=== PATIENT | male | born 1955 | race Caucasian/White ===

== ENCOUNTER 2018-02-07 10:10 | Inpatient (IN) | payer OTHER ==
[2018-02-07] MEDS: morphine 4 MG/ML VIAL IV (10:46)
[2018-02-07] MEDS: ONDANSETRON 4 MG INJ IV (10:46)
[2018-02-07 10:50] LABS: ADD MAN DIFF? NO
[2018-02-07 11:00] LABS: WHITE BLOOD COUNT 13.1 10^3/ul (4.8-10.8)
[2018-02-07 11:00] LABS: BASOPHILS % 0.2 % (0.0-2.0); EOSINOPHILS # 0.2 10^3/ul (0.0-0.5); EOSINOPHILS % 1.3 % (0.0-7.0); HEMATOCRIT 36.5 % (42.0-52.0); HEMOGLOBIN 12.7 g/dl (14.0-18.0); LYMPHOCYTES # 1.7 10^3/ul (0.8-2.9); LYMPHOCYTES % 12.9 % (15.0-51.0); MEAN CORPUSCULAR HEMOGLOBIN 28.9 pg (29.0-33.0); MEAN CORPUSCULAR HGB CONC 34.8 g/dl (32.0-37.0); MEAN PLATELET VOLUME 9.1 fl (7.4-10.4); MONOCYTE # 0.9 10^3/ul (0.3-0.9); MONOCYTES % 6.7 % (0.0-11.0); NEUTROPHIL # 10.2 10^3/ul (1.6-7.5); NEUTROPHILS % 78.1 % (39.0-77.0); PLATELET COUNT 259 10^3/UL (140-415)
[2018-02-07 11:22] LABS: ALANINE AMINOTRANSFERASE 20 IU/L (13-69); ALBUMIN/GLOBULIN RATIO 1.08; ALKALINE PHOSPHATASE 88 IU/L (42-121); ANION GAP 14 (8-16); ASPARTATE AMINO TRANSFERASE 15 IU/L (15-46); BILIRUBIN,INDIRECT 0.7 mg/dl (0-1.1); BILIRUBIN,TOTAL 0.7 mg/dl (0.2-1.3); BLOOD UREA NITROGEN 13 mg/dl (7-20); CALCIUM 9.1 mg/dl (8.4-10.2); CARBON DIOXIDE 28 mmol/L (21-31); CHLORIDE 105 mmol/L (97-110); CREATININE 0.79 mg/dl (0.61-1.24); GLUCOSE 155 mg/dl (70-220); POTASSIUM 3.5 mmol/L (3.5-5.1); SODIUM 143 mmol/L (135-144); TOTAL PROTEIN 7.7 g/dl (6.1-8.1)
[2018-02-07] MEDS: SOD CHLORIDE 0.9% 100 ML (12:31)
[2018-02-07] MEDS: IOHEXOL 300MG/ML 150 ML BTL (12:32)
[2018-02-07] MEDS: ERTAPENEM SODIUM 1 GM in SOD CHLORIDE 0.9% 100 ML IVPB (13:56)
[2018-02-07] MEDS ORDERED: MEROPENEM 1 GM/50ML(PMX) 50 ML IVPB ×2 (14:00→22:00)
[2018-02-07] MEDS ORDERED: ACETAMINOPHEN 325 MG TAB PO ×2 (14:00→14:30)
[2018-02-07] MEDS ORDERED: ONDANSETRON 4 MG INJ IV ×3 (14:00→18:00)
[2018-02-07] MEDS: SOD CHLORIDE 0.9% 1,000 ML IV (14:07)
[2018-02-07] MEDS ORDERED: NACL 0.9% 3 ML SYG IV (14:30)
[2018-02-07] MEDS ORDERED: DOCUSATE SODIUM 100 MG CAP PO (14:30)
[2018-02-07] MEDS ORDERED: BISACODYL (EC) 5 MG TAB PO (14:30)
[2018-02-07] MEDS ORDERED: MAGNESIUM HYDROXIDE 30ML CUP PO (14:30)
[2018-02-07] MEDS: DEXTROSE 5%-0.45% NACL 1,000 ML IV ×2 (16:31→23:07)
[2018-02-07] MEDS ORDERED: DIPHENHYDRAMINE 50 MG INJ IV (18:00)
[2018-02-07] MEDS ORDERED: MEPERIDINE 25 MG INJ IV (18:00)
[2018-02-07] MEDS ORDERED: FENTAnyl 50 MCG/ML VIAL IV (18:00)
[2018-02-07] MEDS ORDERED: HYDROmorphONE 1 MG/5 ML IV SYRINGE IV ×2 (18:00)
[2018-02-07] MEDS ORDERED: FENTAnyl 50 MCG/ML VIAL (18:38)
[2018-02-07] MEDS ORDERED: LIDOCAINE 1% (MPF) 30 ML INJ (18:38)
[2018-02-07] MEDS ORDERED: SUCCINYLCHOLINE CHLORIDE 100 MG/5 ML SYG IV (19:28)
[2018-02-07] MEDS ORDERED: ROPIVACAINE 0.5 % 30 ML VIAL (19:28)
[2018-02-07] MEDS ORDERED: LIDOCAINE 100 MG SYRINGE (19:28)
[2018-02-07] MEDS ORDERED: ROCURONIUM 50 MG INJ (19:28)
[2018-02-07] MEDS ORDERED: SUGAMMADEX SODIUM 200 MG/2 ML VIAL IV (19:28)
[2018-02-07] MEDS ORDERED: PROPOFOL 20 ML (19:28)
[2018-02-07] MEDS: BUPIVACAINE 0.25%/EPI (SDV) 30 ML INJ (19:53)
[2018-02-07] MEDS: METOCLOPRAMIDE 10 MG INJ IV (20:28)
[2018-02-07] MEDS: FENTAnyl 50 MCG/ML VIAL IV (20:28)
[2018-02-07] MEDS: morphine 2 MG INJ IV (23:19)
[2018-02-07] MEDS: PIPER-TAZO 3.375 GM IV (PMX) 100 ML IVPB (23:20)
[2018-02-08] MEDS: morphine 2 MG INJ IV ×4 (02:36→23:41)
[2018-02-08] MEDS: DEXTROSE 5%-0.45% NACL 1,000 ML IV ×3 (03:00→21:41)
[2018-02-08] MEDS: PIPER-TAZO 3.375 GM IV (PMX) 100 ML IVPB ×4 (05:13→23:38)
[2018-02-08 05:37] LABS: ADD MAN DIFF? NO
[2018-02-08 05:43] LABS: WHITE BLOOD COUNT 11.7 10^3/ul (4.8-10.8)
[2018-02-08 05:43] LABS: BASOPHILS % 0.1 % (0.0-2.0); EOSINOPHILS # 0.1 10^3/ul (0.0-0.5); EOSINOPHILS % 0.6 % (0.0-7.0); HEMATOCRIT 34.7 % (42.0-52.0); HEMOGLOBIN 11.8 g/dl (14.0-18.0); LYMPHOCYTES # 1.4 10^3/ul (0.8-2.9); LYMPHOCYTES % 11.8 % (15.0-51.0); MEAN CORPUSCULAR HEMOGLOBIN 28.9 pg (29.0-33.0); MONOCYTE # 0.7 10^3/ul (0.3-0.9); MONOCYTES % 6.3 % (0.0-11.0); NEUTROPHIL # 9.4 10^3/ul (1.6-7.5); NEUTROPHILS % 80.3 % (39.0-77.0); PLATELET COUNT 242 10^3/UL (140-415); RED BLOOD COUNT 4.08 10^6/ul (4.70-6.10); RED CELL DISTRIBUTION WIDTH 12.1 % (11.5-14.5)
[2018-02-08 06:11] LABS: ALANINE AMINOTRANSFERASE 22 IU/L (13-69); ALBUMIN 3.4 g/dl (3.3-4.9); ALBUMIN/GLOBULIN RATIO 0.97; ALKALINE PHOSPHATASE 71 IU/L (42-121); ANION GAP 9 (8-16); ASPARTATE AMINO TRANSFERASE 13 IU/L (15-46); BILIRUBIN,INDIRECT 0.6 mg/dl (0-1.1); BILIRUBIN,TOTAL 0.6 mg/dl (0.2-1.3); BLOOD UREA NITROGEN 9 mg/dl (7-20); CALCIUM 8.4 mg/dl (8.4-10.2); CARBON DIOXIDE 31 mmol/L (21-31); CHLORIDE 105 mmol/L (97-110); CREATININE 0.83 mg/dl (0.61-1.24); GLUCOSE 162 mg/dl (70-220); MAGNESIUM 2.2 mg/dl (1.7-2.5); POTASSIUM 4.1 mmol/L (3.5-5.1); SODIUM 141 mmol/L (135-144); TOTAL PROTEIN 6.9 g/dl (6.1-8.1)
[2018-02-08] MEDS ORDERED: hydrALAzine 20 MG INJ IV (17:00)
[2018-02-08] MEDS ORDERED: ENALAPRILAT 1.25 MG INJ IV (17:00)
[2018-02-08] MEDS: LORAZEPAM 2 MG INJ IV (17:22)
[2018-02-09] MEDS: PIPER-TAZO 3.375 GM IV (PMX) 100 ML IVPB ×4 (05:23→23:53)
[2018-02-09 06:05] LABS: ADD MAN DIFF? NO
[2018-02-09 06:24] LABS: BASOPHILS % 0.2 % (0.0-2.0); EOSINOPHILS # 0.2 10^3/ul (0.0-0.5); EOSINOPHILS % 1.2 % (0.0-7.0); HEMATOCRIT 37.2 % (42.0-52.0); LYMPHOCYTES # 1.6 10^3/ul (0.8-2.9); LYMPHOCYTES % 12.8 % (15.0-51.0); MEAN CORPUSCULAR HEMOGLOBIN 29.1 pg (29.0-33.0); MEAN CORPUSCULAR HGB CONC 34.9 g/dl (32.0-37.0); MEAN CORPUSCULAR VOLUME 83.4 fl (82.0-101.0); MONOCYTE # 0.9 10^3/ul (0.3-0.9); MONOCYTES % 7.1 % (0.0-11.0); NEUTROPHIL # 9.5 10^3/ul (1.6-7.5); PLATELET COUNT 265 10^3/UL (140-415); RED BLOOD COUNT 4.46 10^6/ul (4.70-6.10); RED CELL DISTRIBUTION WIDTH 11.9 % (11.5-14.5)
[2018-02-09 06:24] LABS: WHITE BLOOD COUNT 12.2 10^3/ul (4.8-10.8)
[2018-02-09 07:25] LABS: ANION GAP 14 (8-16); BLOOD UREA NITROGEN 6 mg/dl (7-20); CALCIUM 8.5 mg/dl (8.4-10.2); CARBON DIOXIDE 27 mmol/L (21-31); CHLORIDE 103 mmol/L (97-110); CREATININE 0.77 mg/dl (0.61-1.24); GLUCOSE 149 mg/dl (70-220); MAGNESIUM 2.2 mg/dl (1.7-2.5); PHOSPHORUS 2.8 mg/dl (2.5-4.9); POTASSIUM 3.6 mmol/L (3.5-5.1); SODIUM 140 mmol/L (135-144)
[2018-02-09] MEDS: DEXTROSE 5%-0.45% NACL 1,000 ML IV (08:44)
[2018-02-09] MEDS: AMLODIPINE 5 MG TAB PO (09:45)
[2018-02-09] MEDS: morphine 2 MG INJ IV (09:55)
[2018-02-09] MEDS: HYDROCODONE/APAP (5/325) TAB PO ×2 (12:30→18:30)
[2018-02-10] MEDS: PIPER-TAZO 3.375 GM IV (PMX) 100 ML IVPB ×3 (05:34→18:06)
[2018-02-10] MEDS: HYDROCODONE/APAP (5/325) TAB PO ×3 (05:34→18:05)
[2018-02-10 06:14] LABS: ADD MAN DIFF? NO
[2018-02-10 06:26] LABS: WHITE BLOOD COUNT 10.1 10^3/ul (4.8-10.8)
[2018-02-10 06:26] LABS: BASOPHILS % 0.3 % (0.0-2.0); EOSINOPHILS # 0.3 10^3/ul (0.0-0.5); EOSINOPHILS % 2.5 % (0.0-7.0); HEMOGLOBIN 12.9 g/dl (14.0-18.0); LYMPHOCYTES # 1.7 10^3/ul (0.8-2.9); LYMPHOCYTES % 16.5 % (15.0-51.0); MEAN CORPUSCULAR HEMOGLOBIN 28.9 pg (29.0-33.0); MEAN CORPUSCULAR HGB CONC 34.9 g/dl (32.0-37.0); MEAN PLATELET VOLUME 9.3 fl (7.4-10.4); MONOCYTE # 0.6 10^3/ul (0.3-0.9); MONOCYTES % 6.1 % (0.0-11.0); NEUTROPHIL # 7.4 10^3/ul (1.6-7.5); NEUTROPHILS % 73.5 % (39.0-77.0); PLATELET COUNT 254 10^3/UL (140-415); RED BLOOD COUNT 4.46 10^6/ul (4.70-6.10)
[2018-02-10 07:05] LABS: ANION GAP 17 (8-16); BLOOD UREA NITROGEN 8 mg/dl (7-20); CALCIUM 8.7 mg/dl (8.4-10.2); CARBON DIOXIDE 28 mmol/L (21-31); CHLORIDE 101 mmol/L (97-110); GLUCOSE 116 mg/dl (70-220); MAGNESIUM 2.3 mg/dl (1.7-2.5); PHOSPHORUS 3.2 mg/dl (2.5-4.9); POTASSIUM 3.5 mmol/L (3.5-5.1); SODIUM 142 mmol/L (135-144)
[2018-02-10] MEDS: AMLODIPINE 5 MG TAB PO (08:12)
[2018-02-10] MEDS ORDERED: LORAZEPAM 0.5 MG TAB PO (15:01)
[2018-02-10] MEDS ORDERED: morphine LIQ (10 MG/5 ML) CUP PO (15:01)
[2018-02-11] MEDS: PIPER-TAZO 3.375 GM IV (PMX) 100 ML IVPB ×4 (00:31→17:37)
[2018-02-11 06:19] LABS: ADD MAN DIFF? NO
[2018-02-11 06:29] LABS: BASOPHIL # 0.1 10^3/ul (0.0-0.1); BASOPHILS % 0.6 % (0.0-2.0); EOSINOPHILS # 0.3 10^3/ul (0.0-0.5); EOSINOPHILS % 3.2 % (0.0-7.0); HEMATOCRIT 37.9 % (42.0-52.0); HEMOGLOBIN 12.9 g/dl (14.0-18.0); LYMPHOCYTES # 1.6 10^3/ul (0.8-2.9); MEAN CORPUSCULAR HEMOGLOBIN 28.6 pg (29.0-33.0); MEAN PLATELET VOLUME 9.2 fl (7.4-10.4); MONOCYTE # 0.5 10^3/ul (0.3-0.9); MONOCYTES % 6.7 % (0.0-11.0); NEUTROPHIL # 5.2 10^3/ul (1.6-7.5); NEUTROPHILS % 67.1 % (39.0-77.0); PLATELET COUNT 273 10^3/UL (140-415); RED BLOOD COUNT 4.51 10^6/ul (4.70-6.10); RED CELL DISTRIBUTION WIDTH 11.9 % (11.5-14.5)
[2018-02-11 06:29] LABS: WHITE BLOOD COUNT 7.8 10^3/ul (4.8-10.8)
[2018-02-11 06:50] LABS: ANION GAP 14 (8-16); BLOOD UREA NITROGEN 12 mg/dl (7-20); CALCIUM 8.8 mg/dl (8.4-10.2); CARBON DIOXIDE 29 mmol/L (21-31); CHLORIDE 104 mmol/L (97-110); CREATININE 0.92 mg/dl (0.61-1.24); GLUCOSE 124 mg/dl (70-220); MAGNESIUM 2.3 mg/dl (1.7-2.5); PHOSPHORUS 3.3 mg/dl (2.5-4.9); SODIUM 143 mmol/L (135-144)
[2018-02-11] MEDS: AMLODIPINE 5 MG TAB PO (08:30)
[2018-02-11] MEDS: HYDROCODONE/APAP (5/325) TAB PO ×2 (12:19→22:18)
[2018-02-12] MEDS: PIPER-TAZO 3.375 GM IV (PMX) 100 ML IVPB ×3 (00:16→12:23)
[2018-02-12 05:55] LABS: ADD MAN DIFF? NO
[2018-02-12 06:04] LABS: BASOPHILS % 0.3 % (0.0-2.0); EOSINOPHILS # 0.3 10^3/ul (0.0-0.5); EOSINOPHILS % 3.6 % (0.0-7.0); HEMATOCRIT 36.6 % (42.0-52.0); HEMOGLOBIN 12.7 g/dl (14.0-18.0); LYMPHOCYTES # 1.9 10^3/ul (0.8-2.9); LYMPHOCYTES % 25.3 % (15.0-51.0); MEAN CORPUSCULAR HEMOGLOBIN 28.9 pg (29.0-33.0); MEAN CORPUSCULAR HGB CONC 34.7 g/dl (32.0-37.0); MEAN CORPUSCULAR VOLUME 83.2 fl (82.0-101.0); MEAN PLATELET VOLUME 9.1 fl (7.4-10.4); MONOCYTE # 0.5 10^3/ul (0.3-0.9); MONOCYTES % 7.1 % (0.0-11.0); NEUTROPHIL # 4.7 10^3/ul (1.6-7.5); NEUTROPHILS % 62.5 % (39.0-77.0); PLATELET COUNT 247 10^3/UL (140-415); RED CELL DISTRIBUTION WIDTH 12.1 % (11.5-14.5)
[2018-02-12 06:04] LABS: WHITE BLOOD COUNT 7.5 10^3/ul (4.8-10.8)
[2018-02-12 06:38] LABS: ALBUMIN 3.5 g/dl (3.3-4.9); ANION GAP 12 (8-16); BLOOD UREA NITROGEN 11 mg/dl (7-20); CALCIUM 8.8 mg/dl (8.4-10.2); CARBON DIOXIDE 28 mmol/L (21-31); CHLORIDE 107 mmol/L (97-110); CREATININE 0.94 mg/dl (0.61-1.24); GLUCOSE 120 mg/dl (70-220); MAGNESIUM 2.4 mg/dl (1.7-2.5); PHOSPHORUS 3.1 mg/dl (2.5-4.9); POTASSIUM 4.3 mmol/L (3.5-5.1); SODIUM 143 mmol/L (135-144)
[2018-02-12] MEDS: AMLODIPINE 5 MG TAB PO (09:09)
== END 2018-02-12 17:10 | disposition home health service (06) | DRG 853 ==
LOC: E/R 10:10 → SDS 17:55 → REC 13:52 → MS2 21:30
PROC: 0WJG4ZZ Inspection of Peritoneal Cavity, Percutaneous Endoscopic Approach (ICD-10-PCS; principal; 2018-02-07 18:00)
PROC: 0W9G40Z Drainage of Peritoneal Cavity with Drainage Device, Percutaneous Endoscopic Approach (ICD-10-PCS; 2018-02-07 18:00)
DX: A41.9 Sepsis, unspecified organism (principal); K35.3 Acute appendicitis with localized peritonitis; K35.2 Acute appendicitis with generalized peritonitis; E66.9 Obesity, unspecified; Z68.31 Body mass index [BMI] 31.0-31.9, adult; K59.00 Constipation, unspecified; N40.0 Benign prostatic hyperplasia without lower urinary tract symptoms; D50.9 Iron deficiency anemia, unspecified
CPT/HCPCS: 36415; 74177; 80048; 80053; 80069; 83735; 84100; 85025; 93005; 96374; 96375; 99285-25

== ENCOUNTER 2018-06-05 16:39 | Inpatient (IN) | payer OTHER ==
[2018-06-05 17:26] LABS: ADD MAN DIFF? NO
[2018-06-05 17:29] LABS: WHITE BLOOD COUNT 6.8 10^3/ul (4.8-10.8)
[2018-06-05 17:29] LABS: BASOPHILS % 0.3 % (0.0-2.0); EOSINOPHILS % 0.6 % (0.0-7.0); HEMATOCRIT 40.1 % (42.0-52.0); HEMOGLOBIN 14.7 g/dl (14.0-18.0); LYMPHOCYTES # 1.7 10^3/ul (0.8-2.9); LYMPHOCYTES % 25.3 % (15.0-51.0); MEAN CORPUSCULAR HEMOGLOBIN 30.6 pg (29.0-33.0); MEAN CORPUSCULAR HGB CONC 36.7 g/dl (32.0-37.0); MEAN CORPUSCULAR VOLUME 83.4 fl (82.0-101.0); MEAN PLATELET VOLUME 9.4 fl (7.4-10.4); MONOCYTE # 0.5 10^3/ul (0.3-0.9); MONOCYTES % 7.4 % (0.0-11.0); NEUTROPHIL # 4.5 10^3/ul (1.6-7.5); NEUTROPHILS % 65.7 % (39.0-77.0); PLATELET COUNT 160 10^3/UL (140-415); RED BLOOD COUNT 4.81 10^6/ul (4.70-6.10)
[2018-06-05 17:43] LABS: PROTIME 12.2 Sec (11.9-14.9)
[2018-06-05 17:44] LABS: PARTIAL THROMBOPLASTIN TIME 31.9 Sec (23.0-35.0)
[2018-06-05 17:46] LABS: BLOOD UREA NITROGEN 11 mg/dl (7-20); CALCIUM 10.3 mg/dl (8.4-10.2); CARBON DIOXIDE 28 mmol/L (21-31); CHLORIDE 105 mmol/L (97-110); CREATININE 1.04 mg/dl (0.61-1.24); GLUCOSE 131 mg/dl (70-220); POTASSIUM 3.8 mmol/L (3.5-5.1); SODIUM 142 mmol/L (135-144)
[2018-06-05 17:58] LABS: TROPONIN-I < 0.012 ng/ml (0.000-0.120)
[2018-06-05] MEDS: SODIUM CHLORIDE 0.9% 1L BAG IV* (18:02)
[2018-06-05] MEDS: morphine 4 MG/ML VIAL IV (18:02)
[2018-06-05] MEDS: PIPER-TAZO 3.375 GM IV (PMX) 100 ML IVPB (18:02)
[2018-06-05] MEDS: ONDANSETRON 4 MG INJ IV (18:02)
[2018-06-05 18:14] LABS: ADD UMIC NO; UR ASCORBIC ACID NEGATIVE (NEGATIVE); UR BILIRUBIN (Dip) NEGATIVE (NEGATIVE); UR BLOOD (Dip) NEGATIVE (NEGATIVE); UR CLARITY CLEAR (CLEAR); UR COLOR STRAW (YELLOW); UR GLUCOSE (Dip) NEGATIVE (NEGATIVE); UR KETONES (Dip) NEGATIVE (NEGATIVE); UR LEUKOCYTE ESTERASE (Dip) NEGATIVE Leu/ul (NEGATIVE); UR NITRITE (Dip) NEGATIVE (NEGATIVE); UR SPECIFIC GRAVITY (Dip) 1.011 (1.003-1.030); UR TOTAL PROTEIN (Dip) NEGATIVE (NEGATIVE); UR UROBILINOGEN (Dip) NEGATIVE (NEGATIVE)
[2018-06-05] MEDS ORDERED: ACETAMINOPHEN 325 MG TAB PO (19:00)
[2018-06-05] MEDS ORDERED: ONDANSETRON 4 MG INJ IV (19:00)
[2018-06-05] MEDS ORDERED: NACL 0.9% 3 ML SYG IV (19:30)
[2018-06-05] MEDS: IOHEXOL 300MG/ML 150 ML BTL (20:05)
[2018-06-05] MEDS: SOD CHLORIDE 0.9% 100 ML (20:07)
[2018-06-05] MEDS: IOHEXOL 14.3 MG(I)/ML (ADULT) BTL PO (21:00)
[2018-06-06 04:59] LABS: ADD MAN DIFF? NO
[2018-06-06 05:01] LABS: WHITE BLOOD COUNT 6.9 10^3/ul (4.8-10.8)
[2018-06-06 05:01] LABS: BASOPHILS % 0.4 % (0.0-2.0); EOSINOPHILS # 0.1 10^3/ul (0.0-0.5); EOSINOPHILS % 1.7 % (0.0-7.0); HEMATOCRIT 41.4 % (42.0-52.0); HEMOGLOBIN 14.7 g/dl (14.0-18.0); LYMPHOCYTES # 2.6 10^3/ul (0.8-2.9); LYMPHOCYTES % 37.4 % (15.0-51.0); MEAN CORPUSCULAR HEMOGLOBIN 30.2 pg (29.0-33.0); MEAN CORPUSCULAR HGB CONC 35.5 g/dl (32.0-37.0); MEAN PLATELET VOLUME 9.8 fl (7.4-10.4); MONOCYTE # 0.8 10^3/ul (0.3-0.9); NEUTROPHIL # 3.4 10^3/ul (1.6-7.5); NEUTROPHILS % 48.8 % (39.0-77.0); PLATELET COUNT 164 10^3/UL (140-415); RED BLOOD COUNT 4.87 10^6/ul (4.70-6.10); RED CELL DISTRIBUTION WIDTH 13.3 % (11.5-14.5)
[2018-06-06 05:17] LABS: HEMOGLOBIN A1C 5.2 % (0-5.9)
[2018-06-06 05:29] LABS: ALANINE AMINOTRANSFERASE 39 IU/L (13-69); ALBUMIN 3.8 g/dl (3.3-4.9); ALBUMIN/GLOBULIN RATIO 1.18; ALKALINE PHOSPHATASE 72 IU/L (42-121); ASPARTATE AMINO TRANSFERASE 33 IU/L (15-46); BILIRUBIN,INDIRECT 0.7 mg/dl (0-1.1); BILIRUBIN,TOTAL 0.7 mg/dl (0.2-1.3); BLOOD UREA NITROGEN 12 mg/dl (7-20); CALCIUM 10.1 mg/dl (8.4-10.2); CARBON DIOXIDE 32 mmol/L (21-31); CHLORIDE 107 mmol/L (97-110); CREATININE 0.98 mg/dl (0.61-1.24); GLUCOSE 108 mg/dl (70-220); POTASSIUM 4.9 mmol/L (3.5-5.1); SODIUM 145 mmol/L (135-144)
[2018-06-06 09:16] LABS: ANION GAP 6 (5-13)
[2018-06-06 10:10] LABS: ANION GAP 9 (5-13)
[2018-06-06] MEDS: PIPER-TAZO 3.375 GM IV (PMX) 100 ML IVPB ×2 (10:14→17:36)
[2018-06-07] MEDS: PIPER-TAZO 3.375 GM IV (PMX) 100 ML IVPB ×3 (02:18→19:34)
[2018-06-07] MEDS ORDERED: ROCURONIUM 50 MG INJ (13:41)
[2018-06-07] MEDS ORDERED: FENTAnyl 50 MCG/ML VIAL (13:41)
[2018-06-07] MEDS ORDERED: MIDAZOLAM 1 MG/ML 2 ML INJ (13:41)
[2018-06-07] MEDS ORDERED: PROPOFOL 20 ML (13:41)
[2018-06-07] MEDS ORDERED: ROPIVACAINE 0.5 % 30 ML VIAL (13:42)
[2018-06-07] MEDS ORDERED: LIDOCAINE 1% (MDV) 20 ML INJ (14:07)
[2018-06-07] MEDS ORDERED: LIDOCAINE 1%/EPI 30 ML INJ (14:13)
[2018-06-07] MEDS ORDERED: BUPIVACAINE 0.25% (MPF) 30 ML INJ (14:13)
[2018-06-07] MEDS ORDERED: hydrALAzine 20 MG INJ IV (14:30)
[2018-06-07] MEDS ORDERED: EPHEDrine SULFATE 50 MG/5 ML SYG IV (14:30)
[2018-06-07] MEDS ORDERED: FENTAnyl 50 MCG/ML VIAL IV ×3 (14:30)
[2018-06-07] MEDS ORDERED: ONDANSETRON 4 MG INJ IV (14:30)
[2018-06-07] MEDS ORDERED: HYDROmorphONE 1 MG/5 ML IV SYRINGE IV ×3 (14:30)
[2018-06-07] MEDS ORDERED: MEPERIDINE 25 MG INJ IV (14:30)
[2018-06-07] MEDS ORDERED: METOCLOPRAMIDE 10 MG INJ IV (14:30)
[2018-06-07] MEDS ORDERED: LABETALOL HCL 20MG INJ IV (14:30)
[2018-06-07] MEDS ORDERED: OXYCODONE/ACETAMINOPHEN (5/325) TAB PO (14:30)
[2018-06-07] MEDS ORDERED: DIPHENHYDRAMINE 50 MG INJ IV (14:30)
[2018-06-07] MEDS ORDERED: ONDANSETRON 4 MG INJ (15:00)
[2018-06-07] MEDS ORDERED: DEXAMETHASONE 4 MG/ML 1 ML INJ (15:00)
[2018-06-07] MEDS ORDERED: METOCLOPRAMIDE 10 MG INJ (15:00)
[2018-06-07] MEDS ORDERED: CEFAZOLIN 1 GM INJ (15:00)
[2018-06-07] MEDS ORDERED: KETOROLAC 30 MG INJ (15:01)
[2018-06-07] MEDS ORDERED: LABETALOL HCL 20MG INJ (15:15)
[2018-06-07] MEDS ORDERED: hydrALAzine 20 MG INJ (15:16)
[2018-06-07] MEDS ORDERED: SUGAMMADEX SODIUM 200 MG/2 ML VIAL IV (15:22)
[2018-06-07] MEDS ORDERED: HYDROmorphONE 0.5 MG/0.5 ML SYG IV (16:00)
[2018-06-07] MEDS: OXYCODONE/ACETAMINOPHEN (5/325) TAB PO (20:51)
[2018-06-08] MEDS: PIPER-TAZO 3.375 GM IV (PMX) 100 ML IVPB ×2 (02:35→10:26)
[2018-06-08] MEDS ORDERED: VITAMIN A & D 5 GM OINT PACKET TOP (11:55)
== END 2018-06-08 14:30 | disposition home or self-care (01) | DRG 337 ==
LOC: E/R 16:39 → TEL 06-06 14:34 → MS1 19:02 → TEL 06-06 19:47
PROC: 0DTJ4ZZ Resection of Appendix, Percutaneous Endoscopic Approach (ICD-10-PCS; principal; 2018-06-07 13:30)
PROC: 0DNE4ZZ Release Large Intestine, Percutaneous Endoscopic Approach (ICD-10-PCS; 2018-06-07 13:30)
PROC: 0DN84ZZ Release Small Intestine, Percutaneous Endoscopic Approach (ICD-10-PCS; 2018-06-07 13:30)
DX: K35.890 Other acute appendicitis without perforation or gangrene (principal); K36 Other appendicitis; I10 Essential (primary) hypertension; K66.0 Peritoneal adhesions (postprocedural) (postinfection)
CPT/HCPCS: 36415; 71045; 74177; 80048; 80053; 81003; 83036; 83605; 84484; 85025; 85610; 85730; 87040; 87086; 88304; 93005; 93306; 96365; 96375; 97161; 99285-25